=== PATIENT | female | born 1965 | race Caucasian/White ===

== ENCOUNTER 2017-06-16 22:28 | Emergency (ER) | payer MEDICAID ==
[2017-06-17 01:00] VITALS: BP 135/78
== END 2017-06-17 01:00 | disposition home or self-care (01) ==
LOC: ED 22:28
DX: S39.012A Strain of muscle, fascia and tendon of lower back, initial encounter (principal); Z91.041 Radiographic dye allergy status; X58.XXXA Exposure to other specified factors, initial encounter; Y93.89 Activity, other specified; Y99.8 Other external cause status; Y92.89 Other specified places as the place of occurrence of the external cause